=== PATIENT | female | born 1990 | race Caucasian/White ===

== ENCOUNTER 2016-10-25 21:09 | Emergency (ER) | payer MEDICAID ==
[~2016-10-25] VITALS: Ht 165.1 cm; Wt 149.7 kg
[~2016-10-25 21:09] MED LIST: KEFLEX500 MG PO; LISINOPRIL10 MG; METFORMIN HCL1000 M1 PO; NORTRIPTYLINE H10 MG PO; PROTONIX40 MG PO; PYRIDIUM200 MG PO; REGLAN10 MG PO
[2016-10-25] MEDS ORDERED: IBUPROFEN600 MG PO (23:43)
--- NOTE | 2016-10-26 20:39 | EKG ---
[facility] [address] [facility] [place] [address] Signed Normal sinus rhythm Normal ECG No previous ECGs available Confirmed by SHAWNA MAE MD ([id number]) on 10/26/2016 8:38:45 PM Electronically Signed By: SHAWNA MAE MD 10/26/16 2038 PATIENT NAME: ROSALBA LANDIS ABIDA Electrocardiogram DATE OF : 86 PHYSICIAN: SHAWNA MAE MD REPORT #: [id number] REPORT IS CONFIDENTIAL AND NOT TO BE RELEASED WITHOUT AUTHORIZATION
== END 2016-10-25 23:56 | disposition home or self-care (01) ==
LOC: ED 21:09
DX: R07.9 Chest pain, unspecified (principal); E11.9 Type 2 diabetes mellitus without complications; E66.9 Obesity, unspecified; Z90.49 Acquired absence of other specified parts of digestive tract; Z91.040 Latex allergy status; Z88.1 Allergy status to other antibiotic agents; Z91.041 Radiographic dye allergy status; Z79.899 Other long term (current) drug therapy; Z79.84 Long term (current) use of oral hypoglycemic drugs
CPT/HCPCS: 71020; 80053; 84484; 85025; 93005; 93010; 99284

== ENCOUNTER 2016-11-16 19:21 | Emergency (ER) | payer MEDICAID ==
[~2016-11-16] VITALS: Ht 165.1 cm; Wt 149.7 kg
[~2016-11-16 19:21] MED LIST changes: +IBUPROFEN600 MG PO
== END 2016-11-16 21:30 | disposition home or self-care (01) ==
LOC: ED 19:21
DX: R19.7 Diarrhea, unspecified (principal); R10.9 Unspecified abdominal pain; E11.9 Type 2 diabetes mellitus without complications; E28.2 Polycystic ovarian syndrome; Z91.040 Latex allergy status; Z88.1 Allergy status to other antibiotic agents; Z88.8 Allergy status to other drugs, medicaments and biological substances; Z79.899 Other long term (current) drug therapy; Z90.49 Acquired absence of other specified parts of digestive tract; Z98.890 Other specified postprocedural states; Z79.84 Long term (current) use of oral hypoglycemic drugs
CPT/HCPCS: 80053; 81001; 84703; 85025; 96374; 96375; 99283; J1170; J2405; J7030

== ENCOUNTER 2024-04-30 19:45 | Emergency (ER) | payer OTHER ==
[~2024-04-30] VITALS: Ht 165.1 cm; Wt 149.7 kg
[2024-04-30] MEDS ORDERED: BASAGLAR K100 UNIT/1 SQ (19:54)
[2024-04-30] MEDS ORDERED: FAMOTIDINE 20 MG/ 2 ML VIAL IV ONE (20:00)
[2024-04-30] MEDS ORDERED: ASPIRIN 81 MG CHEW PO ONE (20:00)
[2024-04-30 20:29] LABS: BASOPHILS 0.3 % (0-2); EOSINOPHILS 1.3 % (0-6); HEMATOCRIT 41.5 % (35.0-50.0); HEMOGLOBIN 13.9 g/dL (12.0-18.0); LYMPHOCYTES 20.6 % (24-44); MCHC 33.5 g/dl (30-36); MCV 80.6 fl (81-99); MONOCYTES 6.1 % (0-12); NEUTROPHILS 71.7 % (39-80); PLATELET COUNT 237 K/uL (140-440); RBC 5.14 M/ul (4.3-5.7); RDW 15.4 (10.5-15.0)
[2024-04-30] MEDS ORDERED: NITROGLYCERIN 0.4 MG SUBL SL PRN (20:45)
[2024-04-30 20:46] LABS: ALBUMIN 3.8 g/dL (3.4-5.0); ALBUMIN/GLOBULIN RATIO 1.03 (1.1-2.4); ANION GAP 12.7 (7-21); BILIRUBIN, TOTAL 0.9 ng/dL (0.2-1.0); BUN/CREATININE RATIO 15.21 (6.0-28.6); CREATININE, SERUM 0.92 mg/dL (0.55-1.02); MAGNESIUM 1.7 mg/dL (1.8-2.4); POTASSIUM 3.7 mmol/L (3.5-5.1); PROTEIN, TOTAL 7.5 g/dL (6.4-8.2)
[2024-04-30] MEDS ORDERED: LORazepam 2 MG/ML VIAL IV ONE (21:00)
[2024-04-30] MEDS ORDERED: VRAYLAR1.5 MG PO (21:05)
[2024-04-30 21:55] VITALS: BP 108/66
--- NOTE | 2024-05-03 21:13 | EKG ---
[facility] [address] [facility] [place] [address] Signed Normal sinus rhythm with sinus arrhythmia Normal ECG Confirmed by Devin Marvin DO ([id number]) on 05/03/2024 9:12:53 PM Electronically Signed By: DEVIN MARVIN DO 05/03/242112 PATIENT NAME: CINTHYABALTAZARROSALBA Electrocardiogram DATE OF : 86 PHYSICIAN: DEVIN MARVIN DO REPORT #: [id number] REPORT IS CONFIDENTIAL AND NOT TO BE RELEASED WITHOUT AUTHORIZATION
== END 2024-04-30 21:55 | disposition home or self-care (01) ==
LOC: ED 19:45
PROVIDERS: Internal Medicine
DX: R07.89 Other chest pain (principal); F41.1 Generalized anxiety disorder; I25.10 Atherosclerotic heart disease of native coronary artery without angina pectoris; E11.9 Type 2 diabetes mellitus without complications; F32.A Depression, unspecified; E66.01 Morbid (severe) obesity due to excess calories; Z88.2 Allergy status to sulfonamides; Z88.1 Allergy status to other antibiotic agents; Z91.041 Radiographic dye allergy status; Z91.040 Latex allergy status; Z79.4 Long term (current) use of insulin
CPT/HCPCS: 36415; 71045; 80053; 83735; 84484; 85025; 93005; 93010; 96374; 96375; 99285-25; A9270; J2060

== ENCOUNTER 2024-05-07 19:58 | Emergency (ER) | payer OTHER ==
[~2024-05-07] VITALS: Ht 165.1 cm; Wt 158.8 kg
[~2024-05-07 19:58] MED LIST changes: +BASAGLAR K100 UNIT/1 SQ; +VRAYLAR1.5 MG PO
[2024-05-07 20:23] LABS: BILIRUBIN, URINE NEGATIVE (negative); BLOOD/HGB, URINE NEGATIVE (Negative); KETONE, URINE NEGATIVE (Negative); LEUK ESTERASE, URINE NEGATIVE (negative); NITRITE, URINE NEGATIVE (negative)
[2024-05-07 20:48] LABS: BASOPHILS 0.4 % (0-2); EOSINOPHILS 1.8 % (0-6); HEMATOCRIT 39.1 % (35.0-50.0); HEMOGLOBIN 13.3 g/dL (12.0-18.0); LYMPHOCYTES 21.4 % (24-44); MCH 27.3 (27-36); MCHC 34.1 g/dl (30-36); MONOCYTES 6.6 % (0-12); NEUTROPHILS 69.8 % (39-80); PLATELET COUNT 214 K/uL (140-440); RBC 4.89 M/ul (4.3-5.7); RDW 15.5 (10.5-15.0)
[2024-05-07 21:02] LABS: ALBUMIN 3.6 g/dL (3.4-5.0); ALBUMIN/GLOBULIN RATIO 1.13 (1.1-2.4); ANION GAP 9.6 (7-21); BUN/CREATININE RATIO 16.66 (6.0-28.6); CALCIUM 8.8 mg/dL (8.5-10.1); CREATININE, SERUM 0.78 mg/dL (0.55-1.02); POTASSIUM 3.6 mmol/L (3.5-5.1); PROTEIN, TOTAL 6.8 g/dL (6.4-8.2)
[2024-05-07] MEDS ORDERED: KETOROLAC TROMETHAMINE 30 MG/ML VIAL IV ONE (22:00)
[2024-05-07 22:13] LABS: BACTERIA, WET MOUNT 2+ (NEGATIVE); CLUE CELLS, WET MOUNT NEGATIVE (NEGATIVE); EPITHELIAL CELLS, WET MOUNT 2+ (NEGATIVE); RBC, WET MOUNT 1+ (NEGATIVE); SOURCE, WET MOUNT VAGINAL; TRICHOMONAS, WET MOUNT NEGATIVE (NEGATIVE); WBC, WET MOUNT 1+ (NEGATIVE); YEAST, WET MOUNT NEGATIVE (NEGATIVE)
[2024-05-07] MEDS ORDERED: MORPHINE SULFATE 4 MG/ML VIAL IV ONE (22:15)
[2024-05-07] MEDS ORDERED: ondansetron HCL 4 MG/2 ML VIAL IV ONE (22:30)
[2024-05-07 22:32] LABS: N. GONORRRHOEAE BY PCR NOT DETECTED (NOT DETECT)
[2024-05-07] MEDS ORDERED: metroNIDAZOLE 500 MG HOME.PACK PO ONE (22:45)
[2024-05-07] MEDS ORDERED: HYDROCODONE BIT/ACETAMINOPHEN 5/325 MG 1 TAB HOME.PACK PO ONE (22:45)
[2024-05-07 22:59] VITALS: BP 146/77
== END 2024-05-07 23:04 | disposition home or self-care (01) ==
LOC: ED 19:58
PROVIDERS: Family Medicine
DX: N76.0 Acute vaginitis (principal); E11.9 Type 2 diabetes mellitus without complications; E66.9 Obesity, unspecified; Z88.2 Allergy status to sulfonamides; Z88.1 Allergy status to other antibiotic agents; Z91.041 Radiographic dye allergy status; Z91.040 Latex allergy status; Z79.4 Long term (current) use of insulin; Z79.899 Other long term (current) drug therapy
CPT/HCPCS: 36415; 74176; 80053; 81003; 85025; 87210; 96374; 96375; 99284-25; A9270; J1885; J2270; J2405

== ENCOUNTER 2024-05-27 11:32 | Emergency (ER) | payer OTHER ==
[~2024-05-27] VITALS: Ht 165.1 cm; Wt 160.6 kg
[2024-05-27] MEDS ORDERED: PRAZOSIN HCL2 MG PO (11:59)
[2024-05-27] MEDS ORDERED: ATIVAN0.5 MG PO (12:00)
[2024-05-27] MEDS ORDERED: SODIUM CHLORIDE 0.9% 1,000 ML IV ONE (12:15)
[2024-05-27 12:19] LABS: BILIRUBIN, URINE NEGATIVE (negative); BLOOD/HGB, URINE NEGATIVE (Negative); KETONE, URINE NEGATIVE (Negative); LEUK ESTERASE, URINE NEGATIVE (negative); NITRITE, URINE NEGATIVE (negative)
[2024-05-27 12:27] LABS: BASOPHILS 0.2 % (0-2); EOSINOPHILS 1.5 % (0-6); HEMATOCRIT 38.8 % (35.0-50.0); HEMOGLOBIN 13.3 g/dL (12.0-18.0); MCH 27.4 (27-36); MCHC 34.3 g/dl (30-36); MCV 79.9 fl (81-99); MONOCYTES 5.4 % (0-12); NEUTROPHILS 73.9 % (39-80); PLATELET COUNT 222 K/uL (140-440); RBC 4.86 M/ul (4.3-5.7); RDW 16.1 (10.5-15.0)
[2024-05-27 12:41] LABS: ALBUMIN 3.8 g/dL (3.4-5.0); ALBUMIN/GLOBULIN RATIO 1.15 (1.1-2.4); ANION GAP 10.1 (7-21); BILIRUBIN, TOTAL 0.7 mg/dL (0.2-1.0); BUN/CREATININE RATIO 25.92 (6.0-28.6); CALCIUM 9.5 mg/dL (8.5-10.1); CREATININE, SERUM 0.81 mg/dL (0.55-1.02); POTASSIUM 4.1 mmol/L (3.5-5.1); PROTEIN, TOTAL 7.1 g/dL (6.4-8.2)
[2024-05-27 14:23] VITALS: BP 113/79
== END 2024-05-27 14:23 | disposition home or self-care (01) ==
LOC: ED 11:32
PROVIDERS: Emergency Medicine
DX: E11.65 Type 2 diabetes mellitus with hyperglycemia (principal); E66.9 Obesity, unspecified; Z88.2 Allergy status to sulfonamides; Z88.1 Allergy status to other antibiotic agents; Z91.030 Bee allergy status; Z91.041 Radiographic dye allergy status; Z91.040 Latex allergy status; Z79.4 Long term (current) use of insulin; Z79.899 Other long term (current) drug therapy
CPT/HCPCS: 36415; 80053; 81003; 85025; 99284; J7030

== ENCOUNTER 2024-07-06 15:57 | Emergency (ER) | payer OTHER ==
[~2024-07-06] VITALS: Ht 165.1 cm; Wt 162.2 kg
[~2024-07-06 15:57] MED LIST changes: +ATIVAN0.5 MG PO; +PRAZOSIN HCL2 MG PO
[2024-07-06] MEDS ORDERED: OZEMPIC0.25 MG/02 (16:09)
[2024-07-06] MEDS ORDERED: HYDROCODON-ACE1 EA10 PO (16:35)
[2024-07-06] MEDS ORDERED: HYDROCODONE/APAP 10/325 1 TAB PO ONE (16:45)
[2024-07-06 16:47] VITALS: BP 137/83
== END 2024-07-06 16:49 | disposition home or self-care (01) ==
LOC: ED 15:57
DX: S46.911A Strain of unspecified muscle, fascia and tendon at shoulder and upper arm level, right arm, initial encounter (principal); X58.XXXA Exposure to other specified factors, initial encounter; E11.9 Type 2 diabetes mellitus without complications; E66.9 Obesity, unspecified; Z88.2 Allergy status to sulfonamides; Z88.1 Allergy status to other antibiotic agents; Z91.030 Bee allergy status; Z91.041 Radiographic dye allergy status; Z91.040 Latex allergy status; Z79.4 Long term (current) use of insulin; Z79.899 Other long term (current) drug therapy
CPT/HCPCS: 73030; 99283; A9270

== ENCOUNTER 2024-07-26 15:15 | Emergency (ER) | payer OTHER ==
[~2024-07-26] VITALS: Ht 165.1 cm; Wt 165.0 kg
[~2024-07-26 15:15] MED LIST changes: +HYDROCODON-ACE1 EA10 PO; +OZEMPIC0.25 MG/02
[2024-07-26] MEDS ORDERED: CAPLYTA42 MG PO (15:27)
[2024-07-26] MEDS ORDERED: EPINEPHRIN0.3 MG/0.3 IM (15:27)
[2024-07-26] MEDS ORDERED: LORazepam 1 MG TAB PO ONE (15:45)
[2024-07-26] MEDS ORDERED: LORazepam 2 MG/ML VIAL IV ONE (15:45)
[2024-07-26] MEDS ORDERED: ondansetron HCL 4 MG/2 ML VIAL IV ONE (15:45)
[2024-07-26] MEDS ORDERED: ONDANSETRON 4 MG TAB ODT SL ONE (15:45)
[2024-07-26 16:00] LABS: BILIRUBIN, URINE NEGATIVE (negative); BLOOD/HGB, URINE NEGATIVE (Negative); KETONE, URINE NEGATIVE (Negative); LEUK ESTERASE, URINE NEGATIVE (negative); NITRITE, URINE NEGATIVE (negative); PH, URINE 6.5 (5-7)
[2024-07-26 16:11] LABS: CRYSTALS, URINE NONE SEEN (0-1+); EPITHELIAL CELLS, URINE SQUAMOUS 2+ /lpf (0-1+); RED BLOOD CELLS, URINE 0-1 /hpf (0-5); WHITE BLOOD CELLS, URINE 0-1 /HPF (0-5)
[2024-07-26 16:12] LABS: BACTERIA, URINE NONE SEEN /hpf (negative); CASTS, URINE NONE SEEN \\lpf; COLLECTION TYPE, URINE CLEAN CATCH; REFLEX CULTURE, URINE No (No)
[2024-07-26 17:24] VITALS: BP 129/78
--- NOTE | 2024-07-26 22:25 | EKG ---
[facility] [address] [place] [place] [address] Signed Normal sinus rhythm with sinus arrhythmia Low voltage QRS Borderline ECG When compared with ECG of 30-APR-2024 19:48, No significant change was found Confirmed by Carrillo Dickson MD () on 07/26/2024 10:25:02 PM Electronically Signed By: CARRILLO DICKSON MD 07/26/242224 PATIENT NAME: ROSALBA PRECIADO Electrocardiogram DATE OF : 86 PHYSICIAN: CARRILLO DICKSON MD REPORT #: [id number] REPORT IS CONFIDENTIAL AND NOT TO BE RELEASED WITHOUT AUTHORIZATION
== END 2024-07-26 17:24 | disposition home or self-care (01) ==
LOC: ED 15:15
PROVIDERS: Emergency Medicine
DX: R41.0 Disorientation, unspecified (principal); R07.9 Chest pain, unspecified; T42.4X5A Adverse effect of benzodiazepines, initial encounter; E11.9 Type 2 diabetes mellitus without complications; Z79.4 Long term (current) use of insulin; Z79.899 Other long term (current) drug therapy; Z88.2 Allergy status to sulfonamides; Z91.040 Latex allergy status; Z88.1 Allergy status to other antibiotic agents; Z91.030 Bee allergy status
CPT/HCPCS: 51798; 81001; 93005; 93010; 99285; A9270; A9270-GY

== ENCOUNTER 2024-11-03 13:31 | Emergency (ER) | payer OTHER ==
[~2024-11-03] VITALS: Ht 165.1 cm; Wt 159.9 kg
[~2024-11-03 13:31] MED LIST changes: +CAPLYTA42 MG PO; +EPINEPHRIN0.3 MG/0.3 IM
[2024-11-03] MEDS ORDERED: PHENAZOPYRIDINE HCL 100 MG TAB PO ONE (13:45)
[2024-11-03 13:47] LABS: BLOOD/HGB, URINE NEGATIVE (Negative); KETONE, URINE NEGATIVE (Negative); LEUK ESTERASE, URINE NEGATIVE (negative); NITRITE, URINE NEGATIVE (negative)
[2024-11-03] MEDS ORDERED: FETZIMA40 MG PO (13:47)
[2024-11-03] MEDS ORDERED: DIFLUCAN100 MG PO (14:15)
[2024-11-03] MEDS ORDERED: CEPHALEXIN500 M1 PO (14:15)
[2024-11-03 14:28] VITALS: BP 111/87
[2024-11-03] MEDS ORDERED: FLUCONAZOLE 100 MG TAB PO ONE (14:30)
[2024-11-03] MEDS ORDERED: CEPHALEXIN MONOHYDRATE 500 MG CAP PO ONE (14:30)
== END 2024-11-03 14:44 | disposition home or self-care (01) ==
LOC: ED 13:31
PROVIDERS: Emergency Medicine
DX: R30.0 Dysuria (principal); B37.2 Candidiasis of skin and nail; E11.9 Type 2 diabetes mellitus without complications; Z91.030 Bee allergy status; Z88.2 Allergy status to sulfonamides; Z91.040 Latex allergy status; Z88.1 Allergy status to other antibiotic agents; Z91.041 Radiographic dye allergy status; Z79.4 Long term (current) use of insulin; Z79.85 Long-term (current) use of injectable non-insulin antidiabetic drugs; Z79.899 Other long term (current) drug therapy
CPT/HCPCS: 81003; 99283; A9270

== ENCOUNTER 2024-11-13 17:06 | Emergency (ER) | payer OTHER ==
[~2024-11-13] VITALS: Ht 165.1 cm; Wt 158.0 kg
[~2024-11-13 17:06] MED LIST changes: +CEPHALEXIN500 M1 PO; +DIFLUCAN100 MG PO; +FETZIMA40 MG PO
[2024-11-13] MEDS ORDERED: HYDROmorphone HCL 1 MG/ML SYR IV ONE (20:30)
[2024-11-13] MEDS ORDERED: ACETAMINOPHEN 500 MG TAB PO ONE (20:30)
[2024-11-13] MEDS ORDERED: FAMOTIDINE 20 MG/ 2 ML VIAL IV ONE (20:30)
[2024-11-13] MEDS ORDERED: LACTATED RINGER'S 1,000 ML IV ONE (20:30)
[2024-11-13 20:45] LABS: BASOPHILS 0.3 % (0.1-1.2); EOSINOPHILS 1.8 % (0.7-5.8); LYMPHOCYTES 17.9 % (19.3-51.7); MCH 26.8 PG (25.6-32.2); MCHC 33.2 g/dL (32.2-35.5); MCV 80.9 fL (79.4-94.8); MONOCYTES 5.4 % (4.7-12.5); NEUTROPHILS 74.1 % (34.0-71.1); RBC 5.07 M/uL (3.93-5.22)
[2024-11-13 21:15] LABS: INR 1.01 (0.80-1.30); PROTIME 12.6 Sec (11.2-14.2)
[2024-11-13 21:28] LABS: ALT (SGPT) 48.0 U/L (14-59); AST (SGOT) 26.0 U/L (15-37); GLOMERULAR FILTRATION RATE,EST 118.0 mL/min (>60); PROTEIN, TOTAL 6.9 g/dL (6.4-8.2); TSH, 3RD GENERATION 1.24 uIU/mL (0.358-3.740); UREA NITROGEN 18.0 mg/dL (7-18)
[2024-11-13] MEDS ORDERED: KETOROLAC TROMETHAMINE 30 MG/ML VIAL IV ONE (21:45)
[2024-11-13 22:01] LABS: BLOOD/HGB, URINE NEGATIVE (Negative); KETONE, URINE SMALL (Negative); LEUK ESTERASE, URINE NEGATIVE (negative); NITRITE, URINE NEGATIVE (negative)
[2024-11-13 22:45] VITALS: BP 134/73
== END 2024-11-13 22:47 | disposition home or self-care (01) ==
LOC: ED 17:06
PROVIDERS: Internal Medicine
DX: G43.909 Migraine, unspecified, not intractable, without status migrainosus (principal); E11.9 Type 2 diabetes mellitus without complications; E66.01 Morbid (severe) obesity due to excess calories; Z68.43 Body mass index [BMI] 50.0-59.9, adult; Z88.2 Allergy status to sulfonamides; Z88.1 Allergy status to other antibiotic agents; Z91.030 Bee allergy status; Z91.041 Radiographic dye allergy status; Z91.040 Latex allergy status; Z79.4 Long term (current) use of insulin; Z79.899 Other long term (current) drug therapy
CPT/HCPCS: 36415; 70450; 80053; 81003; 83735; 84443; 85025; 85610; 96374; 96375; 99284-25; A9270; J1171; J1885; J2405; J7121

== ENCOUNTER 2025-03-07 12:58 | Emergency (ER) | payer OTHER ==
[~2025-03-07] VITALS: Ht 165.1 cm; Wt 154.5 kg
[~2025-03-07 12:58] MED LIST changes: +PAXLOVID 150-11 EAC2 PO
[2025-03-07] MEDS ORDERED: TIZANIDINE HCL2 M1 PO (13:59)
[2025-03-07] MEDS ORDERED: OXYCODONE/APAP 5/325 TAB PO ONE (15:15)
[2025-03-07] MEDS ORDERED: ONDANSETRON 4 MG TAB ODT SL ONE (15:15)
[2025-03-07] MEDS ORDERED: CYCLOBENZAPRINE10 MG PO (16:44)
[2025-03-07 16:55] VITALS: BP 125/84
== END 2025-03-07 16:55 | disposition home or self-care (01) ==
LOC: ED 12:58
DX: M54.50 Low back pain, unspecified (principal); G89.29 Other chronic pain; E11.9 Type 2 diabetes mellitus without complications; Z79.899 Other long term (current) drug therapy; Z79.4 Long term (current) use of insulin; Z88.2 Allergy status to sulfonamides; Z91.040 Latex allergy status; Z88.1 Allergy status to other antibiotic agents; Z91.041 Radiographic dye allergy status; Z91.030 Bee allergy status
CPT/HCPCS: 72148; 99284-25; A9270